=== PATIENT | male | born 1960 | race African-American/Black ===

== ENCOUNTER 2022-05-04 01:12 | Day surgery (SDC) | payer OTHER, SELFPAY ==
[2022-04-20 11:52] VITALS: BMI 20.9
--- NOTE | 2022-04-20 11:58 | PC.NURSE ---
Report to the Outpatient Waiting Room, entrance under the green pavilion located off [facility], at time 0700 on date 05/04/22. Planned Procedure Time: 0900. Time changes happen often and if your time is changed the preop area will call you the afternoon before. - You and your visitor will be asked to self-screen and do not enter if you have any COVID symptoms. - Only one visitor is requested with a max of two and NO children visitors are allowed at this time. - The patient visitor may be requested to leave or wait in car when not with patient due to distancing restrictions. - A mask is optional within the hospital at this time. Patients may have clear liquids (water, carbonated beverages, clear teas, apple juice) until 3 hours prior to surgery with a maximum of 20 ounces. - No food from midnight until time of surgery Take the following medications with a SIP of water the morning of surgery: CARVEDILOL DO NOT STOP ANY OF YOUR OTHER PRESCRIPTION MEDICATIONS PRIOR TO SURGERY ?EXCEPT THE FOLLOWING Medications to discontinue per physician: N/A Date to take last dose: N/A Please no make-up, nail nigerian, hairspray, perfume, deodorant, or body powder the day of surgery. No jewelry (including any body piercings) or valuables the day of surgery, leave them at home. Please take a shower or bath the night before, or the morning of, surgery with an antibacterial soap. Wear comfortable, loose fitting clothing. - Jewelry must be removed prior to entering the operating room. Rings and piercings that are not removed may be cut off. - The hospital will not accept responsibility for valuables. - Please leave all valuables, including medications, at home the day of surgery. If you are going home after surgery, a licensed electric train driver must drive you home. - NO public transportation without another adult if you receive anesthesia. - We recommend that an adult stay with you for 24 hours following discharge. - We also recommend that you do not drive, make important decision, drink alcoholic beverages, or take any drugs that were not prescribed by your health care provider for at least 24 hours after your discharge time. Follow any additional instructions given to you from your surgeon. If you or anyone in your household have experienced Covid symptoms in the past week, please notify your surgeon or the nurse liaison at the phone number below for possible testing. Telephone instructions given to PT - NATHANIEL JOSHI and asked if any additional questions and then verbalized understanding. Patient advised to call surgeon office or pre surgery nurse liaison [phone] if any additional questions.
[2022-05-04] MEDS: LACTATED RINGERS 1,000 ML 30 ML IV CONT ×2 (07:00→11:01)
--- NOTE | 2022-05-04 07:11 | WPDHPUPDATE1 ---
History and Physical Update Update Date/Time: 05/04/22 07:11 History and Physical has been reviewed, including an updated exam of the patient. There are NO changes in the patient's condition. Risks, benefits, and alternatives have been discussed and questions answered. Patient agrees to proceed with procedure. Any foreign material will be removed.
[2022-05-04 08:02] VITALS: BP 158/98; PULSE 84; RESP 14; TEMP 36.6; O2SAT 100
--- NOTE | 2022-05-04 08:47 | P.PNAN_ITS ---
Anes - Initial Pre Proc Eval Procedure: Operation Date: 05/04/22 09:00 Proposed Procedures p Excision of Chronic Draining Scar of the Lower Abdomen - Alex Monroe MD Date/Time: 05/04/22 08:47 Surgeon: Alex Monroe MD Pre Op Diagnosis: chronic nonhealing wound lower abdomen Patient Data Age: 61 Gender: M Height: 1.73 m Weight: 65.2 kg Last Vital Signs Temp 97.9 F 05/04/22 08:02 Pulse 84 05/04/22 08:02 Resp 14 05/04/22 08:02 BP 158/98 H 05/04/22 08:02 Pulse Ox 100 05/04/22 08:02 O2 Del Method Room Air 05/04/22 08:02 Allergies Allergy/AdvReac Type Severity Reaction Status Date / Time No Known Allergies Allergy Verified 05/04/22 08:06 Home Medications Medication Instructions Recorded Confirmed Type carvedilol 6.25 mg tablet 6.25 mg PO BID 04/20/22 05/04/22 History lisinopril 10 mg tablet 10 mg PO DAILY 04/20/22 04/20/22 History Patient hx anesthesia problems: none Family hx anesthesia problems: none Results Review: All pre-operative results and documents have been reviewed as part of the pre- operative evaluation. [facility] Social History Social History Smoking packs per day: 0.5 Smoking cigarettes per day: 10.0 Years smoked: 42 Smoking pack-years: 21.00 Smoking status: Current some day smoker Tobacco type: cigarettes Alcohol intake: current Drinks per week: 4 Substance use: current Substance use type: marijuana Living arrangements: with friend(s) Additional living arrangements comments: [facility] Spiritual care concerns: No Anes - Eval Final PreProcedure Day of Procedure 05/04/22 08:47 Patient weight: normal Heart: regular rate and rhythm Lungs: clear to auscultation Airway: Mallampati scale class II Neurological: alert and oriented Last oral intake: >/= 8 hours ASA classification: II Emergent: no Anesthetic plan: proceed Anesthesia type and monitoring: general GIVS and standard monitoring Results Review: All pre-operative results and documents have been reviewed as part of the pre- operative evaluation. Informed Consent: The patient's anesthetic plan and its attendant risks and benefits were discussed with the patient/family/POA. Questions were solicited and answers provided to the satisfaction of the patient/family/POA.
[2022-05-04] MEDS: ceFAZolin 2 GM/D5W 50 ML 2 GM/50 ML BAG IVPB (08:54)
[2022-05-04] MEDS: LIDO 1%/EPINEPHRINE 1:100,000 20 ML VIAL INFILTRATE (09:14)
[2022-05-04 11:01] VITALS: BP 161/113; PULSE 75; RESP 14; O2SAT 100
[2022-05-04 11:30] VITALS: BP 161/109; PULSE 74; RESP 14
[2022-05-04] MEDS: fentaNYL CITRATE INJ (*CRX) 100 MCG/2 ML VIAL 25 MCG IV PUSH ×2 (11:33→11:42)
[2022-05-04] MEDS: oxyCODONE HCL (*CRX) 5 MG TAB IR PO (11:39)
[2022-05-04 12:05] VITALS: BP 156/92; PULSE 67; RESP 14; O2SAT 100
--- NOTE | 2022-05-04 12:18 | W.PM.PROC2 ---
Procedure Note - Detailed Date of Procedure 05/04/22 Pre-op Diagnosis chronic nonhealing wound lower abdomen Post-op Diagnosis Same Procedure Performed 6 x 3 cm excision of chronic draining scar tissue of the lower abdomen and complex repair with Z-plasty 54 sq cm Surgeon Alex Monroe MD Supervisor Gluing Gloria Anesthesia General Indications Chronic draining wound of the lower abdominal scar Findings chronic scar and nonabsorbable suture material Description of Procedure the site on the patient's abdomen was marked with his consent in the holding area. He was taken to the operating room was placed supine on the operating table. He was given general anesthesia. The abdomen was then prepped and draped in usual fashion. The sites to be excised lay in the distal 3rd of midline scar which had been last opened approximate 20 years ago. This site this was chronically inflamed and drained from time to time. And oval marking 6 x 3 cm was made for excision of all of these closely approximated scabbed or inverted scars aligned transversely. This area was locally infiltrated with 1% lidocaine with epinephrine. Palpation in this area 1 more time did not reveal weakening of the abdominal fascia. The incision was made as marked and dissection was carried through the subcutaneous tissue, the scar from the deep fascia. Care was taken to identify all structures that were cut with a knife or scissor. We were able to define the midline fascia which appeared to be fully intact. We did not dissect through the tissue that was removed and some of that may have contained additional suture material. That specimen was sent to pathology. We did encounter a nonabsorbable blue monofilament suture knot on the the abdominal fascia. Pulling on that, out we were able to retrieve about 4 cm that came freely. Further tugging on that did cause the patient to feel pain and we simply cut the suture at that level. There was no evidence of chronic inflammation at that site. Once the specimen was removed the area was swabbed for cultures. The wound was irrigated and closure began. Closure presented the problem of how to deal with the midline scar which had now been incised but required approximation to close. This produced a great deal of tension on adjacent scar running in the midline both below and above our wound. a Z-plasty with 6 cm limbs was designed infiltrated and elevated. Rotation of this allowed closure with far less tension. This was inset with 3-0 Vicryl at multiple sites and a running 4-0 nylon. the soft gauze and tape dressing was applied. The patient was awakened, extubated and discharged from the operating room in stable condition. The patient received 2 g of Ancef preop. Estimated Blood Loss 20 Urine Output 475 Drains No Packing No Pathology Yes Complications No immediate complications Condition Stable Disposition Same day
== END 2022-05-04 12:10 | disposition home or self-care (01) ==
PROVIDERS: Visit Provider Plastic Surgery
PROC: (CPT 14001; principal; 2022-05-04 09:00)
DX: T81.89XA Other complications of procedures, not elsewhere classified, initial encounter (principal); L90.5 Scar conditions and fibrosis of skin; Y83.8 Other surgical procedures as the cause of abnormal reaction of the patient, or of later complication, without mention of misadventure at the time of the procedure; F17.210 Nicotine dependence, cigarettes, uncomplicated; F12.90 Cannabis use, unspecified, uncomplicated; I10 Essential (primary) hypertension; K27.9 Peptic ulcer, site unspecified, unspecified as acute or chronic, without hemorrhage or perforation
CPT/HCPCS: 14001; 87070; 87075; 87076; 87185; 87205; 88304; A9270; J0690; J1100; J2250; J2405; J2704; J3010; J7120